=== PATIENT | male | born 1950 | race Caucasian/White ===

== ENCOUNTER → 2016-07-06 | Outpatient (CLI) | payer OTHER | LOC: RAD 12:15 | DX: J01.90 Acute sinusitis, unspecified (principal); J98.01 Acute bronchospasm; R09.89 Other specified symptoms and signs involving the circulatory and respiratory systems; Z72.0 Tobacco use; M89.9 Disorder of bone, unspecified ==

== ENCOUNTER → 2016-07-23 | Outpatient (CLI) | payer OTHER | LOC: RAD 08:03 | DX: E78.00 Pure hypercholesterolemia, unspecified (principal); Z12.5 Encounter for screening for malignant neoplasm of prostate; Z13.1 Encounter for screening for diabetes mellitus ==

== ENCOUNTER → 2016-09-29 | Outpatient (CLI) | payer OTHER | LOC: LAB 07:03 | DX: Z00.00 Encounter for general adult medical examination without abnormal findings (principal); R05 Cough; R79.89 Other specified abnormal findings of blood chemistry; E78.00 Pure hypercholesterolemia, unspecified ==

== ENCOUNTER → 2016-09-30 | Outpatient (CLI) | payer OTHER | LOC: LAB 08:37 | DX: R73.9 Hyperglycemia, unspecified (principal) ==

== ENCOUNTER → 2016-12-16 | Outpatient (CLI) | payer OTHER | LOC: LAB 16:02 | DX: J30.9 Allergic rhinitis, unspecified (principal); R10.11 Right upper quadrant pain ==

== ENCOUNTER → 2016-12-18 | Outpatient (CLI) | payer OTHER | LOC: RAD 09:11 | DX: J30.9 Allergic rhinitis, unspecified (principal); R10.11 Right upper quadrant pain ==

== ENCOUNTER → 2016-12-21 | Outpatient (CLI) | payer OTHER | LOC: RAD 09:43 | DX: K76.9 Liver disease, unspecified (principal); N28.1 Cyst of kidney, acquired; R10.11 Right upper quadrant pain; R05 Cough; Z87.891 Personal history of nicotine dependence | CPT/HCPCS: Q9967 ==

== ENCOUNTER → 2017-07-22 | Outpatient (CLI) | payer OTHER ==
[2017-07-22 14:04] LABS: HEMATOCRIT 42.4 % (42.0-52.0); HEMOGLOBIN 14.2 g/dL (13.5-18.0); MEAN CELL VOLUME 101 fl (78-100); MEAN CORPUSCULAR HEMOGLOBIN 34 pg (27-31); MEAN CORPUSCULAR HGB CONC 34 g/dL (33-37); MEAN PLATELET VOLUME 9.7 fl (7.4-10.4); PLATELET COUNT 163 K/mm3 (130-400); RED BLOOD COUNT 4.22 M/mm3 (4.20-5.60); RED CELL DISTRIBUTION WIDTH 13.9 % (11.5-14.5)
[2017-07-22 14:16] LABS: URINE APPEARANCE CLEAR; URINE BILIRUBIN NEGATIVE (NEGATIVE); URINE BLOOD NEGATIVE (NEGATIVE); URINE COLOR YELLOW; URINE GLUCOSE NEGATIVE (NEGATIVE); URINE KETONE NEGATIVE (NEGATIVE); URINE LEUKOCYTE ESTERASE NEGATIVE (NEGATIVE); URINE MUCUS PRESENT (NOT PRESENT); URINE NITRATE NEGATIVE (NEGATIVE); URINE PROTEIN(semi-quant) NEGATIVE (NEGATIVE); URINE UROBILINOGEN NORMAL (NORMAL)
[2017-07-22 14:18] LABS: ALBUMIN 4.1 g/dL (3.5-5.0); BUN/CREATININE RATIO 12.5 (6.0-26.0); CALCIUM 9.1 mg/dL (8.4-10.2); POTASSIUM 4.1 mmol/L (3.6-5.0); TOTAL BILIRUBIN 0.8 mg/dL (0.2-1.3)
[2017-07-22 14:21] LABS: LYMPHOCYTE 20 % (20-51); MONOCYTE 28 % (3-10); NEUTROPHILS 50 % (42-75)
== END ==
LOC: RAD 13:40
PROVIDERS: Nurse Practitioner Family
DX: R50.9 Fever, unspecified (principal); R05 Cough

== ENCOUNTER → 2018-01-05 | Outpatient (CLI) | payer OTHER ==
[2018-01-05 09:03] LABS: ALBUMIN 3.8 g/dL (3.5-5.0); BUN/CREATININE RATIO 12.5 (6.0-26.0); CALCIUM 9.3 mg/dL (8.4-10.2); POTASSIUM 4.5 mmol/L (3.6-5.0); TOTAL BILIRUBIN 0.4 mg/dL (0.2-1.3); TOTAL PROTEIN 7.3 g/dL (6.3-8.2)
== END ==
LOC: LAB 08:31
PROVIDERS: Family Medicine
DX: Z12.5 Encounter for screening for malignant neoplasm of prostate (principal); E78.00 Pure hypercholesterolemia, unspecified; R94.5 Abnormal results of liver function studies

== ENCOUNTER → 2018-01-27 | Outpatient (CLI) | payer OTHER ==
[~2018-01-27] MED LIST: PRILOSEC 20MG20 MG PO; PROCHLORPERAZIN10 M2
[2018-01-27 14:26] LABS: HEMATOCRIT 26.3 % (42.0-52.0); HEMOGLOBIN 8.4 g/dL (13.5-18.0); MEAN CELL VOLUME 97 fl (78-100); MEAN CORPUSCULAR HEMOGLOBIN 31 pg (27-31); MEAN CORPUSCULAR HGB CONC 32 g/dL (33-37); MEAN PLATELET VOLUME 9.6 fl (7.4-10.4); PLATELET COUNT 423 K/mm3 (130-400); RED CELL DISTRIBUTION WIDTH 15.3 % (11.5-14.5); WHITE BLOOD COUNT 11.9 K/mm3 (4.8-10.8)
[2018-01-27 14:42] LABS: BAND 1 % (0-10); LYMPHOCYTE 16 % (20-51); MONOCYTE 8 % (3-10); NEUTROPHILS 74 % (42-75); POLYCHROMASIA 1+
== END ==
LOC: LAB 14:15
PROVIDERS: Internal Medicine
DX: C24.1 Malignant neoplasm of ampulla of Vater (principal); C77.2 Secondary and unspecified malignant neoplasm of intra-abdominal lymph nodes; C78.7 Secondary malignant neoplasm of liver and intrahepatic bile duct

== ENCOUNTER 2018-04-29 13:52 | Outpatient (RCR) | payer OTHER ==
[2018-01-31 21:08] VITALS: BP 120/75
== END 2018-04-29 15:00 | disposition home or self-care (01) ==
LOC: PT 13:52
DX: M25.511 Pain in right shoulder (principal); M54.2 Cervicalgia; G47.00 Insomnia, unspecified

== ENCOUNTER → 2018-05-04 | Outpatient (CLI) | payer OTHER ==
[2018-01-31 21:08] VITALS: BP 120/75
[2018-05-04 10:29] LABS: DIRECT BILIRUBIN 0.5 mg/dL (0.0-0.4); TOTAL BILIRUBIN 0.8 mg/dL (0.2-1.3); TOTAL PROTEIN 8.6 g/dL (6.3-8.2)
== END ==
LOC: LAB 09:55
PROVIDERS: Family Medicine
DX: C80.1 Malignant (primary) neoplasm, unspecified (principal); E78.00 Pure hypercholesterolemia, unspecified; R94.5 Abnormal results of liver function studies

== ENCOUNTER → 2018-06-13 | Outpatient (CLI) | payer OTHER ==
[2018-01-31 21:08] VITALS: BP 120/75
[2018-06-13 08:17] LABS: HEMATOCRIT 38.4 % (42.0-52.0); HEMOGLOBIN 12.4 g/dL (13.5-18.0); MEAN CELL VOLUME 94 fl (78-100); MEAN CORPUSCULAR HEMOGLOBIN 30 pg (27-31); MEAN CORPUSCULAR HGB CONC 32 g/dL (33-37); MEAN PLATELET VOLUME 9.7 fl (7.4-10.4); PLATELET COUNT 103 K/mm3 (130-400); RED CELL DISTRIBUTION WIDTH 18.4 % (11.5-14.5); WHITE BLOOD COUNT 3.1 K/mm3 (4.8-10.8)
[2018-06-13 08:23] LABS: ALBUMIN 3.7 g/dL (3.5-5.0); CALCIUM 9.1 mg/dL (8.4-10.2); TOTAL PROTEIN 8.5 g/dL (6.3-8.2)
[2018-06-13 08:39] LABS: LYMPHOCYTE 36 % (20-51); MONOCYTE 9 % (3-10); NEUTROPHILS 51 % (42-75)
== END ==
LOC: LAB 08:03
PROVIDERS: Internal Medicine
DX: C24.1 Malignant neoplasm of ampulla of Vater (principal)

== ENCOUNTER → 2018-06-24 | Outpatient (CLI) | payer OTHER ==
[2018-01-31 21:08] VITALS: BP 120/75
== END ==
LOC: LAB 15:56
DX: C80.1 Malignant (primary) neoplasm, unspecified (principal); J02.9 Acute pharyngitis, unspecified; R49.0 Dysphonia

== ENCOUNTER → 2018-06-27 | Outpatient (CLI) | payer OTHER ==
[2018-01-31 21:08] VITALS: BP 120/75
[2018-06-27 08:35] LABS: ALBUMIN 3.6 g/dL (3.5-5.0); TOTAL BILIRUBIN 0.8 mg/dL (0.2-1.3); TOTAL PROTEIN 8.4 g/dL (6.3-8.2)
[2018-06-27 08:54] LABS: HEMATOCRIT 37.7 % (42.0-52.0); HEMOGLOBIN 12.2 g/dL (13.5-18.0); MEAN CELL VOLUME 95 fl (78-100); MEAN CORPUSCULAR HEMOGLOBIN 31 pg (27-31); MEAN CORPUSCULAR HGB CONC 32 g/dL (33-37); MEAN PLATELET VOLUME 9.9 fl (7.4-10.4); PLATELET COUNT 110 K/mm3 (130-400); RED BLOOD COUNT 3.97 M/mm3 (4.20-5.60); RED CELL DISTRIBUTION WIDTH 18.3 % (11.5-14.5); WHITE BLOOD COUNT 3.5 K/mm3 (4.8-10.8)
[2018-06-27 11:46] LABS: LYMPHOCYTE 27 % (20-51); MONOCYTE 10 % (3-10); NEUTROPHILS 52 % (42-75)
== END ==
LOC: LAB 08:10
PROVIDERS: Internal Medicine
DX: C24.1 Malignant neoplasm of ampulla of Vater (principal)

== ENCOUNTER → 2018-07-11 | Outpatient (CLI) | payer OTHER ==
[2018-01-31 21:08] VITALS: BP 120/75
[2018-07-11 08:35] LABS: HEMATOCRIT 38.1 % (42.0-52.0); HEMOGLOBIN 12.1 g/dL (13.5-18.0); MEAN CELL VOLUME 95 fl (78-100); MEAN CORPUSCULAR HEMOGLOBIN 30 pg (27-31); MEAN CORPUSCULAR HGB CONC 32 g/dL (33-37); MEAN PLATELET VOLUME 9.5 fl (7.4-10.4); PLATELET COUNT 117 K/mm3 (130-400); RED BLOOD COUNT 4.02 M/mm3 (4.20-5.60); RED CELL DISTRIBUTION WIDTH 18.4 % (11.5-14.5); WHITE BLOOD COUNT 3.9 K/mm3 (4.8-10.8)
[2018-07-11 08:47] LABS: ALBUMIN 3.6 g/dL (3.5-5.0); CALCIUM 8.7 mg/dL (8.4-10.2); POTASSIUM 4.3 mmol/L (3.6-5.0); TOTAL BILIRUBIN 0.9 mg/dL (0.2-1.3); TOTAL PROTEIN 8.7 g/dL (6.3-8.2)
[2018-07-11 11:24] LABS: LYMPHOCYTE 23 % (20-51); NEUTROPHILS 50 % (42-75)
[2018-07-11 11:25] LABS: MICROCYTOSIS 1+; MONOCYTE 14 % (3-10)
== END ==
LOC: LAB 08:21
PROVIDERS: Internal Medicine
DX: C17.0 Malignant neoplasm of duodenum (principal)

== ENCOUNTER → 2018-07-25 | Outpatient (CLI) | payer OTHER ==
[2018-01-31 21:08] VITALS: BP 120/75
[2018-07-25 08:39] LABS: BASO # 0.1 (0.02-0.10); EOS # 0.3 (0.04-0.40); HEMATOCRIT 37.3 % (42.0-52.0); HEMOGLOBIN 11.9 g/dL (13.5-18.0); LYMPH# 0.8 (1.50-4.00); MEAN CELL VOLUME 96 fl (78-100); MEAN CORPUSCULAR HEMOGLOBIN 31 pg (27-31); MEAN CORPUSCULAR HGB CONC 32 g/dL (33-37); MONO # 0.4 (0.20-0.80); NEU # 2.3 (1.40-6.50); PLATELET COUNT 115 K/mm3 (130-400); RED BLOOD COUNT 3.89 M/mm3 (4.20-5.60); RED CELL DISTRIBUTION WIDTH 18.3 % (11.5-14.5); WHITE BLOOD COUNT 3.8 K/mm3 (4.8-10.8)
[2018-07-25 09:00] LABS: ALBUMIN 3.8 g/dL (3.5-5.0); CALCIUM 8.7 mg/dL (8.4-10.2); POTASSIUM 4.2 mmol/L (3.6-5.0)
[2018-07-25 10:28] LABS: EOS % 6.9 % (0.0-4.0)
== END ==
LOC: LAB 08:22
PROVIDERS: Internal Medicine
DX: C24.1 Malignant neoplasm of ampulla of Vater (principal); C17.0 Malignant neoplasm of duodenum

== ENCOUNTER → 2018-08-08 | Outpatient (CLI) | payer OTHER ==
[2018-01-31 21:08] VITALS: BP 120/75
[2018-08-08 13:43] LABS: ALBUMIN 3.6 g/dL (3.5-5.0); CALCIUM 8.8 mg/dL (8.4-10.2); POTASSIUM 4.4 mmol/L (3.6-5.0); TOTAL PROTEIN 8.4 g/dL (6.3-8.2)
[2018-08-08 15:14] LABS: HEMATOCRIT 33.9 % (42.0-52.0); HEMOGLOBIN 10.8 g/dL (13.5-18.0); MEAN CELL VOLUME 97 fl (78-100); MEAN CORPUSCULAR HEMOGLOBIN 31 pg (27-31); MEAN CORPUSCULAR HGB CONC 32 g/dL (33-37); MEAN PLATELET VOLUME 10.1 fl (7.4-10.4); PLATELET COUNT 116 K/mm3 (130-400); RED BLOOD COUNT 3.49 M/mm3 (4.20-5.60); RED CELL DISTRIBUTION WIDTH 18.5 % (11.5-14.5); WHITE BLOOD COUNT 3.3 K/mm3 (4.8-10.8)
[2018-08-08 16:10] LABS: LYMPHOCYTE 19 % (20-51); MONOCYTE 9 % (3-10); NEUTROPHILS 67 % (42-75)
== END ==
LOC: LAB 11:16
PROVIDERS: Internal Medicine
DX: C24.1 Malignant neoplasm of ampulla of Vater (principal)

== ENCOUNTER → 2018-08-22 | Outpatient (CLI) | payer OTHER ==
[2018-01-31 21:08] VITALS: BP 120/75
[2018-08-22 11:36] LABS: HEMATOCRIT 33.3 % (42.0-52.0); HEMOGLOBIN 10.6 g/dL (13.5-18.0); MEAN CELL VOLUME 97 fl (78-100); MEAN CORPUSCULAR HEMOGLOBIN 31 pg (27-31); MEAN CORPUSCULAR HGB CONC 32 g/dL (33-37); MEAN PLATELET VOLUME 9.5 fl (7.4-10.4); PLATELET COUNT 124 K/mm3 (130-400); RED BLOOD COUNT 3.43 M/mm3 (4.20-5.60); RED CELL DISTRIBUTION WIDTH 18.5 % (11.5-14.5); WHITE BLOOD COUNT 4.2 K/mm3 (4.8-10.8)
[2018-08-22 11:49] LABS: ALBUMIN 3.5 g/dL (3.5-5.0); POTASSIUM 4.5 mmol/L (3.6-5.0); TOTAL PROTEIN 8.5 g/dL (6.3-8.2)
[2018-08-22 12:32] LABS: LYMPHOCYTE 16 % (20-51); MONOCYTE 8 % (3-10); NEUTROPHILS 72 % (42-75)
== END ==
LOC: LAB 11:18
PROVIDERS: Internal Medicine
DX: C24.1 Malignant neoplasm of ampulla of Vater (principal); C17.0 Malignant neoplasm of duodenum; C77.2 Secondary and unspecified malignant neoplasm of intra-abdominal lymph nodes; C78.7 Secondary malignant neoplasm of liver and intrahepatic bile duct

== ENCOUNTER → 2018-09-05 | Outpatient (CLI) | payer OTHER ==
[2018-01-31 21:08] VITALS: BP 120/75
[2018-09-05 10:12] LABS: BASO # 0.1 (0.02-0.10); EOS # 0.2 (0.04-0.40); EOS % 4.7 % (0.0-4.0); HEMATOCRIT 33.2 % (42.0-52.0); HEMOGLOBIN 10.4 g/dL (13.5-18.0); MEAN CELL VOLUME 98 fl (78-100); MEAN CORPUSCULAR HEMOGLOBIN 31 pg (27-31); MEAN CORPUSCULAR HGB CONC 31 g/dL (33-37); MEAN PLATELET VOLUME 9.8 fl (7.4-10.4); MONO # 0.4 (0.20-0.80); NEU # 2.2 (1.40-6.50); PLATELET COUNT 115 K/mm3 (130-400); RED BLOOD COUNT 3.38 M/mm3 (4.20-5.60); RED CELL DISTRIBUTION WIDTH 19.3 % (11.5-14.5); WHITE BLOOD COUNT 3.2 K/mm3 (4.8-10.8)
[2018-09-05 10:13] LABS: ALBUMIN 3.4 g/dL (3.5-5.0); CALCIUM 8.5 mg/dL (8.4-10.2); POTASSIUM 3.9 mmol/L (3.6-5.0); TOTAL BILIRUBIN 1.1 mg/dL (0.2-1.3); TOTAL PROTEIN 8.3 g/dL (6.3-8.2)
[2018-09-05 10:16] LABS: LYMPH# 0.4 (1.50-4.00)
== END ==
LOC: LAB 09:34
PROVIDERS: Internal Medicine
DX: C24.1 Malignant neoplasm of ampulla of Vater (principal); C17.0 Malignant neoplasm of duodenum; C77.2 Secondary and unspecified malignant neoplasm of intra-abdominal lymph nodes; C78.7 Secondary malignant neoplasm of liver and intrahepatic bile duct

== ENCOUNTER → 2018-09-19 | Outpatient (CLI) | payer OTHER ==
[2018-01-31 21:08] VITALS: BP 120/75
[2018-09-19 10:46] LABS: ALBUMIN 3.4 g/dL (3.5-5.0); CALCIUM 8.3 mg/dL (8.4-10.2); POTASSIUM 4.4 mmol/L (3.6-5.0); TOTAL BILIRUBIN 1.2 mg/dL (0.2-1.3); TOTAL PROTEIN 8.2 g/dL (6.3-8.2)
[2018-09-19 10:57] LABS: HEMATOCRIT 29.6 % (42.0-52.0); HEMOGLOBIN 9.2 g/dL (13.5-18.0); MEAN CELL VOLUME 98 fl (78-100); MEAN CORPUSCULAR HEMOGLOBIN 31 pg (27-31); MEAN CORPUSCULAR HGB CONC 31 g/dL (33-37); MEAN PLATELET VOLUME 10.1 fl (7.4-10.4); PLATELET COUNT 125 K/mm3 (130-400); RED BLOOD COUNT 3.02 M/mm3 (4.20-5.60); RED CELL DISTRIBUTION WIDTH 19.9 % (11.5-14.5); WHITE BLOOD COUNT 3.1 K/mm3 (4.8-10.8)
[2018-09-19 11:38] LABS: LYMPHOCYTE 11 % (20-51); MONOCYTE 21 % (3-10); NEUTROPHILS 63 % (42-75)
== END ==
LOC: LAB 10:05
PROVIDERS: Internal Medicine
DX: C24.1 Malignant neoplasm of ampulla of Vater (principal)

== ENCOUNTER 2018-10-01 09:09 | Emergency (ER) | payer OTHER ==
[~2018-10-01] VITALS: Ht 188 cm; Wt 84.0 kg
[2018-10-01] MEDS ORDERED: HYDROXYZINE HYD50 M1 PO (09:18)
[2018-10-01 10:05] LABS: HEMATOCRIT 24.3 % (42.0-52.0); MEAN CELL VOLUME 96 fl (78-100); MEAN CORPUSCULAR HEMOGLOBIN 30 pg (27-31); MEAN CORPUSCULAR HGB CONC 32 g/dL (33-37); MEAN PLATELET VOLUME 10.5 fl (7.4-10.4); PLATELET COUNT 171 K/mm3 (130-400); RED BLOOD COUNT 2.54 M/mm3 (4.20-5.60); RED CELL DISTRIBUTION WIDTH 19.8 % (11.5-14.5); WHITE BLOOD COUNT 7.3 K/mm3 (4.8-10.8)
[2018-10-01 10:07] LABS: ALBUMIN 2.4 g/dL (3.4-4.8); CALCIUM 8.1 mg/dL (8.8-10.0); POTASSIUM 4.1 mmol/L (3.5-5.1); TOTAL BILIRUBIN 1.6 mg/dL (0.2-1.2); TOTAL PROTEIN 6.9 g/dL (6.2-8.1)
[2018-10-01 10:10] LABS: PARTIAL THROMBOPLASTIN TIME 23.6 SECONDS (21.0-32.0); PROTHROMBIN TIME 10.7 SECONDS (9.0-12.0)
[2018-10-01 10:23] LABS: HEMOGLOBIN 7.7 g/dL (13.5-18.0)
[2018-10-01 10:24] LABS: LYMPHOCYTE 12 % (20-51); NEUTROPHILS 72 % (42-75)
[2018-10-01 10:25] LABS: MONOCYTE 12 % (3-10)
[2018-10-01 10:28] LABS: HYPOCHROMIA 1+
[2018-10-01 12:04] VITALS: BP 112/67
== END 2018-10-01 12:17 | disposition short-term general hospital (02) ==
LOC: ED 09:09
PROVIDERS: Family Medicine
DX: C24.1 Malignant neoplasm of ampulla of Vater (principal); C78.7 Secondary malignant neoplasm of liver and intrahepatic bile duct; K92.2 Gastrointestinal hemorrhage, unspecified; Z87.891 Personal history of nicotine dependence
CPT/HCPCS: C9113; J7050; J7120

== ENCOUNTER → 2018-10-06 | Outpatient (CLI) | payer OTHER ==
[2018-10-01 12:04] VITALS: BP 112/67
[~2018-10-06] MED LIST changes: +HYDROXYZINE HYD50 M1 PO
== END ==
LOC: RAD 14:21
DX: C24.1 Malignant neoplasm of ampulla of Vater (principal); R18.8 Other ascites

== ENCOUNTER → 2018-10-11 | Outpatient (CLI) | payer OTHER ==
[2018-10-01 12:04] VITALS: BP 112/67
[2018-10-11 09:52] LABS: HEMATOCRIT 32.4 % (42.0-52.0); HEMOGLOBIN 9.8 g/dL (13.5-18.0); MEAN CELL VOLUME 96 fl (78-100); MEAN CORPUSCULAR HEMOGLOBIN 29 pg (27-31); MEAN CORPUSCULAR HGB CONC 30 g/dL (33-37); MEAN PLATELET VOLUME 9.5 fl (7.4-10.4); PLATELET COUNT 187 K/mm3 (130-400); RED BLOOD COUNT 3.37 M/mm3 (4.20-5.60); RED CELL DISTRIBUTION WIDTH 19.3 % (11.5-14.5); WHITE BLOOD COUNT 4.2 K/mm3 (4.8-10.8)
[2018-10-11 10:09] LABS: LYMPHOCYTE 7 % (20-51); MONOCYTE 12 % (3-10); NEUTROPHILS 76 % (42-75)
[2018-10-11 10:10] LABS: MICROCYTOSIS 1+; OVALOCYTES 1+
[2018-10-11 10:27] LABS: ALBUMIN 2.6 g/dL (3.4-4.8); CALCIUM 8.5 mg/dL (8.8-10.0); POTASSIUM 3.9 mmol/L (3.5-5.1); TOTAL BILIRUBIN 1.2 mg/dL (0.2-1.2); TOTAL PROTEIN 7.5 g/dL (6.2-8.1)
== END ==
LOC: LAB 09:38
PROVIDERS: Internal Medicine
DX: C24.1 Malignant neoplasm of ampulla of Vater (principal)

== ENCOUNTER → 2018-10-18 | Outpatient (CLI) | payer OTHER ==
[2018-10-01 12:04] VITALS: BP 112/67
[2018-10-18 10:51] LABS: HEMOGLOBIN 9.6 g/dL (13.5-18.0); MEAN CELL VOLUME 95 fl (78-100); MEAN CORPUSCULAR HEMOGLOBIN 28 pg (27-31); MEAN CORPUSCULAR HGB CONC 30 g/dL (33-37); MEAN PLATELET VOLUME 9.8 fl (7.4-10.4); PLATELET COUNT 200 K/mm3 (130-400); RED BLOOD COUNT 3.38 M/mm3 (4.20-5.60); RED CELL DISTRIBUTION WIDTH 18.2 % (11.5-14.5); WHITE BLOOD COUNT 5.3 K/mm3 (4.8-10.8)
[2018-10-18 11:06] LABS: ALBUMIN 2.4 g/dL (3.4-4.8); CALCIUM 8.8 mg/dL (8.8-10.0); POTASSIUM 4.3 mmol/L (3.5-5.1); TOTAL BILIRUBIN 1.2 mg/dL (0.2-1.2); TOTAL PROTEIN 7.3 g/dL (6.2-8.1)
[2018-10-18 12:00] LABS: LYMPHOCYTE 15 % (20-51); MONOCYTE 7 % (3-10); NEUTROPHILS 75 % (42-75)
== END ==
LOC: LAB 10:30
PROVIDERS: Internal Medicine
DX: C24.1 Malignant neoplasm of ampulla of Vater (principal)

== ENCOUNTER → 2018-10-24 | Outpatient (CLI) | payer OTHER ==
[2018-10-01 12:04] VITALS: BP 112/67
[2018-10-24 11:17] LABS: HEMATOCRIT 29.9 % (42.0-52.0); MEAN CELL VOLUME 94 fl (78-100); MEAN CORPUSCULAR HEMOGLOBIN 28 pg (27-31); MEAN CORPUSCULAR HGB CONC 30 g/dL (33-37); MEAN PLATELET VOLUME 9.8 fl (7.4-10.4); PLATELET COUNT 239 K/mm3 (130-400); RED BLOOD COUNT 3.17 M/mm3 (4.20-5.60); RED CELL DISTRIBUTION WIDTH 18.2 % (11.5-14.5); WHITE BLOOD COUNT 7.1 K/mm3 (4.8-10.8)
[2018-10-24 11:28] LABS: ALBUMIN 2.6 g/dL (3.4-4.8); CALCIUM 9.1 mg/dL (8.3-10.5); POTASSIUM 4.1 mmol/L (3.5-5.1); TOTAL BILIRUBIN 1.3 mg/dL (0.2-1.2); TOTAL PROTEIN 8.1 g/dL (6.2-8.1)
[2018-10-24 11:34] LABS: LYMPHOCYTE 5 % (20-51); MICROCYTOSIS 1+; MONOCYTE 7 % (3-10); MYELOCYTE 1 % (0-0); NEUTROPHILS 86 % (42-75)
[2018-10-24 12:00] LABS: URINE APPEARANCE CLEAR; URINE BILIRUBIN NEGATIVE (NEGATIVE); URINE BLOOD 250 ery/uL (NEGATIVE); URINE COLOR YELLOW; URINE GLUCOSE NEGATIVE (NEGATIVE); URINE KETONE NEGATIVE (NEGATIVE); URINE LEUKOCYTE ESTERASE NEGATIVE (NEGATIVE); URINE MUCUS PRESENT (NOT PRESENT); URINE NITRATE NEGATIVE (NEGATIVE); URINE PROTEIN(semi-quant) 1+ mg/dL (NEGATIVE); URINE UROBILINOGEN NORMAL (NORMAL); URINE WBC 0-1 /hpf (0-3)
[2018-10-24 12:13] LABS: ERYTHROCYTE SEDIMENTATION RATE 140 mm/hr (0-20)
== END ==
LOC: RAD 10:59 → LAB 10:59
PROVIDERS: Family Medicine
DX: I85.01 Esophageal varices with bleeding (principal); G47.00 Insomnia, unspecified; D62 Acute posthemorrhagic anemia; R30.0 Dysuria

== ENCOUNTER → 2018-11-18 | Outpatient (CLI) | payer OTHER ==
[2018-11-18 13:25] LABS: BASO # 0.1 (0.02-0.10); EOS # 0.2 (0.04-0.40); HEMATOCRIT 32.1 % (42.0-52.0); HEMOGLOBIN 9.4 g/dL (13.5-18.0); MEAN CELL VOLUME 94 fl (78-100); MEAN CORPUSCULAR HEMOGLOBIN 27 pg (27-31); MEAN PLATELET VOLUME 10.1 fl (7.4-10.4); MONO # 0.5 (0.20-0.80); NEU # 3.1 (1.40-6.50); PLATELET COUNT 164 K/mm3 (130-400); RED BLOOD COUNT 3.43 M/mm3 (4.20-5.60); RED CELL DISTRIBUTION WIDTH 17.8 % (11.5-14.5); WHITE BLOOD COUNT 4.4 K/mm3 (4.8-10.8)
[2018-11-18 13:38] LABS: ALBUMIN 2.6 g/dL (3.4-4.8); POTASSIUM 3.9 mmol/L (3.5-5.1)
[2018-11-18 13:39] LABS: CALCIUM 8.4 mg/dL (8.3-10.5)
[2018-11-18 13:40] LABS: TOTAL PROTEIN 7.7 g/dL (6.2-8.1)
[2018-11-18 13:45] LABS: EOS % 5.4 % (0.0-4.0); LYMPH# 0.6 (1.50-4.00); MEAN CORPUSCULAR HGB CONC 29 g/dL (33-37)
== END ==
LOC: LAB 13:14
PROVIDERS: Family Medicine
DX: C24.1 Malignant neoplasm of ampulla of Vater (principal)

== ENCOUNTER → 2018-11-30 | Outpatient (CLI) | payer OTHER, MEDICARE | LOC: RAD 11:34 | DX: K64.4 Residual hemorrhoidal skin tags (principal); R14.0 Abdominal distension (gaseous); R18.8 Other ascites; R16.0 Hepatomegaly, not elsewhere classified ==

== ENCOUNTER → 2018-12-14 | Outpatient (CLI) | payer OTHER, MEDICARE ==
[2018-12-14 11:24] LABS: HEMATOCRIT 28.2 % (42.0-52.0); HEMOGLOBIN 8.5 g/dL (13.5-18.0); MEAN CELL VOLUME 90 fl (78-100); MEAN CORPUSCULAR HEMOGLOBIN 27 pg (27-31); MEAN CORPUSCULAR HGB CONC 30 g/dL (33-37); MEAN PLATELET VOLUME 10.8 fl (7.4-10.4); PLATELET COUNT 105 K/mm3 (130-400); RED BLOOD COUNT 3.14 M/mm3 (4.20-5.60); RED CELL DISTRIBUTION WIDTH 19.9 % (11.5-14.5)
[2018-12-14 11:30] LABS: ALBUMIN 2.9 g/dL (3.4-4.8)
[2018-12-14 11:31] LABS: POTASSIUM 4.1 mmol/L (3.5-5.1)
[2018-12-14 11:32] LABS: CALCIUM 8.3 mg/dL (8.3-10.5)
[2018-12-14 11:33] LABS: LYMPHOCYTE 20 % (20-51); MICROCYTOSIS 1+; MONOCYTE 24 % (3-10); NEUTROPHILS 51 % (42-75); POLYCHROMASIA 1+; TOTAL PROTEIN 6.9 g/dL (6.2-8.1); WHITE BLOOD COUNT 1.3 K/mm3 (4.8-10.8)
[2018-12-14 11:34] LABS: OVALOCYTES 1+; TEAR DROP CELLS 1+
[2018-12-14 11:35] LABS: TOTAL BILIRUBIN 1.5 mg/dL (0.2-1.2)
== END ==
LOC: LAB 11:06
PROVIDERS: Internal Medicine
DX: C24.1 Malignant neoplasm of ampulla of Vater (principal)

== ENCOUNTER → 2018-12-28 | Outpatient (CLI) | payer MEDICARE, OTHER ==
[2018-12-28 14:38] LABS: HEMATOCRIT 26.1 % (42.0-52.0); MEAN CELL VOLUME 89 fl (78-100); MEAN CORPUSCULAR HEMOGLOBIN 27 pg (27-31); MEAN CORPUSCULAR HGB CONC 31 g/dL (33-37); PLATELET COUNT 86 K/mm3 (130-400); RED BLOOD COUNT 2.94 M/mm3 (4.20-5.60); RED CELL DISTRIBUTION WIDTH 20.6 % (11.5-14.5)
[2018-12-28 14:46] LABS: POTASSIUM 4.6 mmol/L (3.5-5.1)
[2018-12-28 14:47] LABS: CALCIUM 8.5 mg/dL (8.3-10.5)
[2018-12-28 14:49] LABS: TOTAL PROTEIN 7.1 g/dL (6.2-8.1)
[2018-12-28 14:50] LABS: TOTAL BILIRUBIN 1.3 mg/dL (0.2-1.2)
[2018-12-28 15:21] LABS: WHITE BLOOD COUNT 0.9 K/mm3 (4.8-10.8)
[2018-12-28 15:23] LABS: LYMPHOCYTE 26 % (20-51); MONOCYTE 32 % (3-10); NEUTROPHILS 40 % (42-75)
[2018-12-28 15:26] LABS: HYPOCHROMIA 2+
== END ==
LOC: LAB 14:23
PROVIDERS: Internal Medicine
DX: C24.1 Malignant neoplasm of ampulla of Vater (principal)

== ENCOUNTER → 2019-01-09 | Outpatient (CLI) | payer MEDICARE, OTHER ==
[2019-01-09 11:56] LABS: HEMATOCRIT 25.9 % (42.0-52.0); MEAN CELL VOLUME 93 fl (78-100); MEAN CORPUSCULAR HEMOGLOBIN 28 pg (27-31); MEAN CORPUSCULAR HGB CONC 30 g/dL (33-37); MEAN PLATELET VOLUME 10.4 fl (7.4-10.4); PLATELET COUNT 153 K/mm3 (130-400); RED BLOOD COUNT 2.78 M/mm3 (4.20-5.60); RED CELL DISTRIBUTION WIDTH 21.6 % (11.5-14.5); WHITE BLOOD COUNT 3.6 K/mm3 (4.8-10.8)
[2019-01-09 12:10] LABS: ALBUMIN 3.2 g/dL (3.4-4.8); POTASSIUM 4.5 mmol/L (3.5-5.1)
[2019-01-09 12:11] LABS: CALCIUM 8.7 mg/dL (8.3-10.5)
[2019-01-09 12:13] LABS: TOTAL PROTEIN 7.4 g/dL (6.2-8.1)
[2019-01-09 12:15] LABS: TOTAL BILIRUBIN 1.4 mg/dL (0.2-1.2)
[2019-01-09 12:40] LABS: HEMOGLOBIN 7.8 g/dL (13.5-18.0)
[2019-01-09 12:44] LABS: BAND 1 % (0-10); LYMPHOCYTE 3 % (20-51); MONOCYTE 2 % (3-10); NEUTROPHILS 94 % (42-75)
[2019-01-09 12:45] LABS: MICROCYTOSIS 1+; OVALOCYTES 1+; TEAR DROP CELLS 1+
== END ==
LOC: LAB 11:40
PROVIDERS: Internal Medicine
DX: C24.1 Malignant neoplasm of ampulla of Vater (principal)

== ENCOUNTER → 2019-01-12 | Outpatient (CLI) | payer MEDICARE, OTHER | LOC: LAB 12:46 | DX: C24.1 Malignant neoplasm of ampulla of Vater (principal); D64.9 Anemia, unspecified ==

== ENCOUNTER → 2019-01-19 | Outpatient (CLI) | payer MEDICARE, OTHER ==
[2019-01-19 12:02] LABS: HEMATOCRIT 25.1 % (42.0-52.0); MEAN CELL VOLUME 92 fl (78-100); MEAN CORPUSCULAR HEMOGLOBIN 27 pg (27-31); MEAN CORPUSCULAR HGB CONC 30 g/dL (33-37); MEAN PLATELET VOLUME 10.5 fl (7.4-10.4); PLATELET COUNT 88 K/mm3 (130-400); RED BLOOD COUNT 2.73 M/mm3 (4.20-5.60); RED CELL DISTRIBUTION WIDTH 21.1 % (11.5-14.5); WHITE BLOOD COUNT 2.6 K/mm3 (4.8-10.8)
[2019-01-19 12:27] LABS: BAND 2 % (0-10); HYPOCHROMIA 1+; LYMPHOCYTE 13 % (20-51); MONOCYTE 20 % (3-10); NEUTROPHILS 64 % (42-75)
[2019-01-19 13:22] LABS: ALBUMIN 3.1 g/dL (3.4-4.8)
[2019-01-19 13:23] LABS: POTASSIUM 3.7 mmol/L (3.5-5.1)
[2019-01-19 13:24] LABS: CALCIUM 8.2 mg/dL (8.3-10.5)
[2019-01-19 13:25] LABS: TOTAL PROTEIN 6.2 g/dL (6.2-8.1)
[2019-01-19 13:27] LABS: TOTAL BILIRUBIN 1.1 mg/dL (0.2-1.2)
[2019-01-19 13:47] LABS: HEMOGLOBIN 7.4 g/dL (13.5-18.0)
== END ==
LOC: LAB 11:18
PROVIDERS: Family Medicine
DX: C24.1 Malignant neoplasm of ampulla of Vater (principal)

== ENCOUNTER → 2019-01-27 | Outpatient (CLI) | payer MEDICARE, OTHER ==
[2019-01-27 14:01] LABS: ALBUMIN 3.2 g/dL (3.4-4.8); MEAN CELL VOLUME 92 fl (78-100); MEAN CORPUSCULAR HEMOGLOBIN 28 pg (27-31); MEAN CORPUSCULAR HGB CONC 30 g/dL (33-37); MEAN PLATELET VOLUME 11.7 fl (7.4-10.4); PLATELET COUNT 119 K/mm3 (130-400); POTASSIUM 4.1 mmol/L (3.5-5.1); RED BLOOD COUNT 2.82 M/mm3 (4.20-5.60); RED CELL DISTRIBUTION WIDTH 20.5 % (11.5-14.5)
[2019-01-27 14:04] LABS: TOTAL PROTEIN 6.2 g/dL (6.2-8.1)
[2019-01-27 14:05] LABS: TOTAL BILIRUBIN 0.9 mg/dL (0.2-1.2)
[2019-01-27 15:49] LABS: HEMOGLOBIN 7.8 g/dL (13.5-18.0)
[2019-01-27 15:50] LABS: LYMPHOCYTE 5 % (20-51); MONOCYTE 2 % (3-10); NEUTROPHILS 93 % (42-75)
== END ==
LOC: LAB 13:24
PROVIDERS: Internal Medicine
DX: C24.1 Malignant neoplasm of ampulla of Vater (principal)

== ENCOUNTER → 2019-02-01 | Outpatient (CLI) | payer MEDICARE, OTHER ==
[2019-02-01 15:29] LABS: HEMATOCRIT 24.4 % (42.0-52.0); MEAN CELL VOLUME 89 fl (78-100); MEAN CORPUSCULAR HEMOGLOBIN 28 pg (27-31); MEAN CORPUSCULAR HGB CONC 31 g/dL (33-37); MEAN PLATELET VOLUME 11.6 fl (7.4-10.4); PLATELET COUNT 74 K/mm3 (130-400); RED BLOOD COUNT 2.74 M/mm3 (4.20-5.60); RED CELL DISTRIBUTION WIDTH 20.2 % (11.5-14.5)
[2019-02-01 15:58] LABS: HEMOGLOBIN 7.6 g/dL (13.5-18.0); WHITE BLOOD COUNT 0.9 K/mm3 (4.8-10.8)
[2019-02-01 15:59] LABS: LYMPHOCYTE 18 % (20-51); MONOCYTE 18 % (3-10); NEUTROPHILS 61 % (42-75)
== END ==
LOC: LAB 15:16
PROVIDERS: Internal Medicine
DX: C24.1 Malignant neoplasm of ampulla of Vater (principal)

== ENCOUNTER → 2019-02-16 | Outpatient (CLI) | payer MEDICARE, OTHER ==
[~2019-02-16] MED LIST changes: +ALDACTONE25 M1 PO; +ATROVENT I0.2 MG/1 M IH; +CHOLESTYRAMINE P4 GM PO; +DECADRON4 M1 PO; +NORCO 325 MG-51 TA1 PO; +[UNRECOGNIZED DRUG - OTHER] RC
[2019-02-16 08:21] LABS: ALBUMIN 3.1 g/dL (3.4-4.8); POTASSIUM 4.5 mmol/L (3.5-5.1)
[2019-02-16 08:23] LABS: CALCIUM 8.3 mg/dL (8.3-10.5)
[2019-02-16 08:24] LABS: TOTAL PROTEIN 6.4 g/dL (6.2-8.1)
[2019-02-16 08:26] LABS: TOTAL BILIRUBIN 1.6 mg/dL (0.2-1.2)
[2019-02-16 08:30] LABS: HEMATOCRIT 26.8 % (42.0-52.0); HEMOGLOBIN 8.3 g/dL (13.5-18.0); MEAN CELL VOLUME 87 fl (78-100); MEAN CORPUSCULAR HEMOGLOBIN 27 pg (27-31); MEAN CORPUSCULAR HGB CONC 31 g/dL (33-37); MEAN PLATELET VOLUME 9.7 fl (7.4-10.4); PLATELET COUNT 88 K/mm3 (130-400); RED BLOOD COUNT 3.09 M/mm3 (4.20-5.60); RED CELL DISTRIBUTION WIDTH 20.1 % (11.5-14.5); WHITE BLOOD COUNT 2.8 K/mm3 (4.8-10.8)
[2019-02-16 08:31] LABS: LYMPHOCYTE 5 % (20-51); MAGNESIUM 1.93 mg/dL (1.60-2.60); MICROCYTOSIS 1+; MONOCYTE 21 % (3-10); NEUTROPHILS 72 % (42-75); OVALOCYTES 1+; POLYCHROMASIA 1+; TEAR DROP CELLS 1+
== END ==
LOC: LAB 08:01
PROVIDERS: Internal Medicine
DX: C24.1 Malignant neoplasm of ampulla of Vater (principal)

== ENCOUNTER → 2019-02-17 | Outpatient (CLI) | payer MEDICARE, OTHER ==
[~2019-02-17] VITALS: Ht 188 cm; Wt 80.9 kg
[2019-02-17 11:40] VITALS: BP 112/64
[2019-02-17 14:00] VITALS: BP 111/67
[2019-02-17 14:09] VITALS: BP 111/67
[2019-02-17 14:28] LABS: POTASSIUM 4.3 mmol/L (3.5-5.1)
[2019-02-17 14:29] LABS: CALCIUM 7.8 mg/dL (8.3-10.5)
== END ==
LOC: AMSURD 11:35
PROVIDERS: Family Medicine
DX: E87.1 Hypo-osmolality and hyponatremia (principal); R00.0 Tachycardia, unspecified; R53.83 Other fatigue; D70.9 Neutropenia, unspecified; G47.00 Insomnia, unspecified
CPT/HCPCS: J7030

== ENCOUNTER → 2019-02-24 | Outpatient (CLI) | payer MEDICARE, OTHER ==
[2019-02-17 14:09] VITALS: BP 111/67
[2019-02-24 13:41] LABS: HEMATOCRIT 27.9 % (42.0-52.0); HEMOGLOBIN 8.4 g/dL (13.5-18.0); MEAN CELL VOLUME 91 fl (78-100); MEAN CORPUSCULAR HEMOGLOBIN 28 pg (27-31); MEAN CORPUSCULAR HGB CONC 30 g/dL (33-37); MEAN PLATELET VOLUME 9.7 fl (7.4-10.4); PLATELET COUNT 238 K/mm3 (130-400); RED BLOOD COUNT 3.06 M/mm3 (4.20-5.60); WHITE BLOOD COUNT 3.4 K/mm3 (4.8-10.8)
[2019-02-24 13:53] LABS: ALBUMIN 3.4 g/dL (3.4-4.8); POTASSIUM 4.4 mmol/L (3.5-5.1)
[2019-02-24 13:54] LABS: CALCIUM 8.6 mg/dL (8.3-10.5)
[2019-02-24 13:55] LABS: TOTAL PROTEIN 6.1 g/dL (6.2-8.1)
[2019-02-24 13:57] LABS: TOTAL BILIRUBIN 1.6 mg/dL (0.2-1.2)
[2019-02-24 14:02] LABS: MAGNESIUM 2.18 mg/dL (1.60-2.60)
[2019-02-24 14:03] LABS: LYMPHOCYTE 2 % (20-51); NEUTROPHILS 98 % (42-75)
== END ==
LOC: LAB 13:22
PROVIDERS: Internal Medicine
DX: C24.1 Malignant neoplasm of ampulla of Vater (principal)

== ENCOUNTER → 2019-03-02 | Outpatient (CLI) | payer MEDICARE, OTHER ==
[2019-02-17 14:09] VITALS: BP 111/67
[2019-03-02 14:11] LABS: HEMATOCRIT 28.7 % (42.0-52.0); HEMOGLOBIN 8.8 g/dL (13.5-18.0); MEAN CELL VOLUME 89 fl (78-100); MEAN CORPUSCULAR HEMOGLOBIN 27 pg (27-31); MEAN CORPUSCULAR HGB CONC 31 g/dL (33-37); MEAN PLATELET VOLUME 9.3 fl (7.4-10.4); PLATELET COUNT 128 K/mm3 (130-400); RED BLOOD COUNT 3.24 M/mm3 (4.20-5.60); RED CELL DISTRIBUTION WIDTH 21.9 % (11.5-14.5); WHITE BLOOD COUNT 3.4 K/mm3 (4.8-10.8)
[2019-03-02 14:20] LABS: ALBUMIN 3.2 g/dL (3.4-4.8)
[2019-03-02 14:21] LABS: POTASSIUM 4.6 mmol/L (3.5-5.1)
[2019-03-02 14:22] LABS: CALCIUM 8.4 mg/dL (8.3-10.5)
[2019-03-02 14:23] LABS: TOTAL PROTEIN 6.5 g/dL (6.2-8.1)
[2019-03-02 14:25] LABS: TOTAL BILIRUBIN 1.9 mg/dL (0.2-1.2)
[2019-03-02 14:27] LABS: LYMPHOCYTE 11 % (20-51); MONOCYTE 18 % (3-10); NEUTROPHILS 70 % (42-75)
[2019-03-02 14:29] LABS: MAGNESIUM 1.93 mg/dL (1.60-2.60); POLYCHROMASIA 1+
== END ==
LOC: LAB 14:00
PROVIDERS: Internal Medicine
DX: C24.1 Malignant neoplasm of ampulla of Vater (principal)

== ENCOUNTER → 2019-03-16 | Outpatient (CLI) | payer MEDICARE, OTHER ==
[2019-02-17 14:09] VITALS: BP 111/67
[2019-03-16 15:24] LABS: HEMATOCRIT 29.6 % (42.0-52.0); MEAN CELL VOLUME 92 fl (78-100); MEAN CORPUSCULAR HEMOGLOBIN 28 pg (27-31); MEAN CORPUSCULAR HGB CONC 30 g/dL (33-37); MEAN PLATELET VOLUME 10.3 fl (7.4-10.4); PLATELET COUNT 106 K/mm3 (130-400); RED BLOOD COUNT 3.21 M/mm3 (4.20-5.60); RED CELL DISTRIBUTION WIDTH 22.6 % (11.5-14.5); WHITE BLOOD COUNT 2.9 K/mm3 (4.8-10.8)
[2019-03-16 15:36] LABS: ALBUMIN 3.2 g/dL (3.4-4.8); POTASSIUM 4.8 mmol/L (3.5-5.1)
[2019-03-16 15:38] LABS: CALCIUM 8.6 mg/dL (8.3-10.5)
[2019-03-16 15:39] LABS: TOTAL PROTEIN 6.2 g/dL (6.2-8.1)
[2019-03-16 15:41] LABS: TOTAL BILIRUBIN 1.5 mg/dL (0.2-1.2)
[2019-03-16 15:45] LABS: MAGNESIUM 1.98 mg/dL (1.60-2.60)
[2019-03-16 15:57] LABS: LYMPHOCYTE 4 % (20-51); MONOCYTE 10 % (3-10); NEUTROPHILS 83 % (42-75)
[2019-03-16 15:58] LABS: POLYCHROMASIA 2+
== END ==
LOC: LAB 15:09
PROVIDERS: Internal Medicine
DX: C24.1 Malignant neoplasm of ampulla of Vater (principal)

== ENCOUNTER → 2019-03-24 | Outpatient (CLI) | payer MEDICARE, OTHER ==
[2019-02-17 14:09] VITALS: BP 111/67
[2019-03-24 15:27] LABS: HEMATOCRIT 25.1 % (42.0-52.0); MEAN CELL VOLUME 95 fl (78-100); MEAN CORPUSCULAR HEMOGLOBIN 29 pg (27-31); MEAN CORPUSCULAR HGB CONC 30 g/dL (33-37); MEAN PLATELET VOLUME 9.9 fl (7.4-10.4); PLATELET COUNT 147 K/mm3 (130-400); RED BLOOD COUNT 2.64 M/mm3 (4.20-5.60); RED CELL DISTRIBUTION WIDTH 22.1 % (11.5-14.5); WHITE BLOOD COUNT 3.1 K/mm3 (4.8-10.8)
[2019-03-24 15:36] LABS: HEMOGLOBIN 7.6 g/dL (13.5-18.0)
[2019-03-24 15:47] LABS: LYMPHOCYTE 1 % (20-51); MONOCYTE 1 % (3-10); NEUTROPHILS 98 % (42-75)
[2019-03-24 15:48] LABS: HYPOCHROMIA 1+
== END ==
LOC: LAB 15:09
PROVIDERS: Internal Medicine
DX: C24.1 Malignant neoplasm of ampulla of Vater (principal)

== ENCOUNTER → 2019-03-30 | Outpatient (CLI) | payer MEDICARE, OTHER ==
[2019-02-17 14:09] VITALS: BP 111/67
[2019-03-30 07:47] LABS: HEMATOCRIT 28.4 % (42.0-52.0); HEMOGLOBIN 8.5 g/dL (13.5-18.0); MEAN CELL VOLUME 93 fl (78-100); MEAN CORPUSCULAR HEMOGLOBIN 28 pg (27-31); MEAN CORPUSCULAR HGB CONC 30 g/dL (33-37); MEAN PLATELET VOLUME 10.7 fl (7.4-10.4); PLATELET COUNT 101 K/mm3 (130-400); RED BLOOD COUNT 3.05 M/mm3 (4.20-5.60); RED CELL DISTRIBUTION WIDTH 22.7 % (11.5-14.5)
[2019-03-30 07:52] LABS: ALBUMIN 3.1 g/dL (3.4-4.8)
[2019-03-30 07:53] LABS: POTASSIUM 4.5 mmol/L (3.5-5.1)
[2019-03-30 07:54] LABS: CALCIUM 8.6 mg/dL (8.3-10.5)
[2019-03-30 07:57] LABS: TOTAL BILIRUBIN 1.3 mg/dL (0.2-1.2)
[2019-03-30 08:02] LABS: MAGNESIUM 1.9 mg/dL (1.60-2.60)
[2019-03-30 08:14] LABS: WHITE BLOOD COUNT 1.9 K/mm3 (4.8-10.8)
[2019-03-30 08:15] LABS: BAND 1 % (0-10); LYMPHOCYTE 14 % (20-51); METAMYELOCYTE 4 % (0-0); MONOCYTE 17 % (3-10); NEUTROPHILS 64 % (42-75); OVALOCYTES 1+; POLYCHROMASIA 1+
== END ==
LOC: LAB 07:23
PROVIDERS: Internal Medicine
DX: C24.1 Malignant neoplasm of ampulla of Vater (principal)

== ENCOUNTER → 2019-04-06 | Outpatient (CLI) | payer MEDICARE, OTHER ==
[2019-02-17 14:09] VITALS: BP 111/67
[2019-04-06 12:21] LABS: HEMATOCRIT 27.9 % (42.0-52.0); HEMOGLOBIN 8.1 g/dL (13.5-18.0); MEAN CELL VOLUME 97 fl (78-100); MEAN CORPUSCULAR HEMOGLOBIN 28 pg (27-31); MEAN CORPUSCULAR HGB CONC 29 g/dL (33-37); MEAN PLATELET VOLUME 10.1 fl (7.4-10.4); PLATELET COUNT 140 K/mm3 (130-400); RED BLOOD COUNT 2.88 M/mm3 (4.20-5.60); RED CELL DISTRIBUTION WIDTH 21.9 % (11.5-14.5); WHITE BLOOD COUNT 4.1 K/mm3 (4.8-10.8)
[2019-04-06 12:47] LABS: LYMPHOCYTE 2 % (20-51); MONOCYTE 4 % (3-10); NEUTROPHILS 94 % (42-75)
[2019-04-06 12:48] LABS: HYPOCHROMIA 1+; POLYCHROMASIA 1+
== END ==
LOC: LAB 11:56
PROVIDERS: Internal Medicine
DX: C24.1 Malignant neoplasm of ampulla of Vater (principal)

== ENCOUNTER → 2019-04-13 | Outpatient (CLI) | payer MEDICARE, OTHER ==
[2019-02-17 14:09] VITALS: BP 111/67
[2019-04-13 14:51] LABS: HEMATOCRIT 28.6 % (42.0-52.0); HEMOGLOBIN 8.7 g/dL (13.5-18.0); MEAN CELL VOLUME 92 fl (78-100); MEAN CORPUSCULAR HEMOGLOBIN 28 pg (27-31); MEAN CORPUSCULAR HGB CONC 30 g/dL (33-37); MEAN PLATELET VOLUME 10.1 fl (7.4-10.4); PLATELET COUNT 91 K/mm3 (130-400); RED BLOOD COUNT 3.11 M/mm3 (4.20-5.60); RED CELL DISTRIBUTION WIDTH 21.3 % (11.5-14.5)
[2019-04-13 16:40] LABS: LYMPHOCYTE 19 % (20-51); MONOCYTE 14 % (3-10); NEUTROPHILS 65 % (42-75)
[2019-04-13 16:41] LABS: HYPOCHROMIA 1+; METAMYELOCYTE 1 % (0-0); MYELOCYTE 1 % (0-0); POLYCHROMASIA 1+
== END ==
LOC: RAD 14:12
PROVIDERS: Internal Medicine
DX: C24.1 Malignant neoplasm of ampulla of Vater (principal); R18.0 Malignant ascites
CPT/HCPCS: 19804; C1729

== ENCOUNTER → 2019-04-21 | Outpatient (CLI) | payer MEDICARE, OTHER ==
[2019-02-17 14:09] VITALS: BP 111/67
[2019-04-21 08:10] LABS: HEMATOCRIT 32.6 % (42.0-52.0); HEMOGLOBIN 9.7 g/dL (13.5-18.0); MEAN CELL VOLUME 95 fl (78-100); MEAN CORPUSCULAR HEMOGLOBIN 28 pg (27-31); MEAN CORPUSCULAR HGB CONC 30 g/dL (33-37); MEAN PLATELET VOLUME 9.9 fl (7.4-10.4); PLATELET COUNT 219 K/mm3 (130-400); RED BLOOD COUNT 3.43 M/mm3 (4.20-5.60); WHITE BLOOD COUNT 2.7 K/mm3 (4.8-10.8)
[2019-04-21 08:13] LABS: ALBUMIN 3.1 g/dL (3.4-4.8); POTASSIUM 4.1 mmol/L (3.5-5.1)
[2019-04-21 08:14] LABS: CALCIUM 8.8 mg/dL (8.3-10.5)
[2019-04-21 08:17] LABS: TOTAL BILIRUBIN 1.1 mg/dL (0.2-1.2)
[2019-04-21 08:22] LABS: MAGNESIUM 2.03 mg/dL (1.60-2.60)
[2019-04-21 08:39] LABS: BAND 2 % (0-10); LYMPHOCYTE 11 % (20-51); MONOCYTE 20 % (3-10); NEUTROPHILS 65 % (42-75)
[2019-04-21 08:40] LABS: HYPOCHROMIA 1+; POLYCHROMASIA 1+
== END ==
LOC: LAB 07:51
PROVIDERS: Internal Medicine
DX: C24.1 Malignant neoplasm of ampulla of Vater (principal)

== ENCOUNTER → 2019-04-27 | Outpatient (CLI) | payer MEDICARE, OTHER ==
[2019-02-17 14:09] VITALS: BP 111/67
[2019-04-27 11:58] LABS: URINE APPEARANCE CLOUDY; URINE BILIRUBIN NEGATIVE (NEGATIVE); URINE BLOOD 250 ery/uL (NEGATIVE); URINE COLOR BROWN; URINE GLUCOSE NEGATIVE (NEGATIVE); URINE KETONE NEGATIVE (NEGATIVE); URINE LEUKOCYTE ESTERASE NEGATIVE (NEGATIVE); URINE MUCUS PRESENT (NOT PRESENT); URINE NITRATE NEGATIVE (NEGATIVE); URINE PROTEIN(semi-quant) 1+ mg/dL (NEGATIVE); URINE UROBILINOGEN NORMAL (NORMAL)
== END ==
LOC: LAB 10:58
PROVIDERS: Family Medicine
DX: C22.0 Liver cell carcinoma (principal); R31.9 Hematuria, unspecified

== ENCOUNTER → 2019-05-08 | Outpatient (CLI) | payer MEDICARE, OTHER ==
[2019-02-17 14:09] VITALS: BP 111/67
[2019-05-08 14:50] LABS: ALBUMIN 2.9 g/dL (3.4-4.8); POTASSIUM 3.8 mmol/L (3.5-5.1)
[2019-05-08 14:51] LABS: CALCIUM 8.1 mg/dL (8.3-10.5)
[2019-05-08 14:53] LABS: TOTAL PROTEIN 6.5 g/dL (6.2-8.1)
[2019-05-08 14:55] LABS: TOTAL BILIRUBIN 1.2 mg/dL (0.2-1.2)
[2019-05-08 14:59] LABS: MAGNESIUM 1.94 mg/dL (1.60-2.60)
[2019-05-08 15:05] LABS: HEMATOCRIT 33.2 % (42.0-52.0); MEAN CELL VOLUME 92 fl (78-100); MEAN CORPUSCULAR HEMOGLOBIN 28 pg (27-31); MEAN CORPUSCULAR HGB CONC 30 g/dL (33-37); MEAN PLATELET VOLUME 10.7 fl (7.4-10.4); PLATELET COUNT 174 K/mm3 (130-400); RED BLOOD COUNT 3.63 M/mm3 (4.20-5.60); RED CELL DISTRIBUTION WIDTH 17.2 % (11.5-14.5); WHITE BLOOD COUNT 4.6 K/mm3 (4.8-10.8)
[2019-05-08 16:25] LABS: LYMPHOCYTE 11 % (20-51); MONOCYTE 10 % (3-10); NEUTROPHILS 76 % (42-75)
[2019-05-08 16:26] LABS: HYPOCHROMIA 1+
== END ==
LOC: LAB 14:31
PROVIDERS: Internal Medicine
DX: C24.1 Malignant neoplasm of ampulla of Vater (principal)

== ENCOUNTER → 2019-05-15 | Outpatient (CLI) | payer MEDICARE, OTHER ==
[2019-02-17 14:09] VITALS: BP 111/67
[2019-05-15 13:33] LABS: HEMATOCRIT 36.2 % (42.0-52.0); HEMOGLOBIN 10.8 g/dL (13.5-18.0); MEAN CELL VOLUME 90 fl (78-100); MEAN CORPUSCULAR HEMOGLOBIN 27 pg (27-31); MEAN CORPUSCULAR HGB CONC 30 g/dL (33-37); MEAN PLATELET VOLUME 9.7 fl (7.4-10.4); PLATELET COUNT 181 K/mm3 (130-400); RED BLOOD COUNT 4.02 M/mm3 (4.20-5.60); RED CELL DISTRIBUTION WIDTH 17.1 % (11.5-14.5)
[2019-05-15 13:38] LABS: ALBUMIN 2.9 g/dL (3.4-4.8)
[2019-05-15 13:39] LABS: POTASSIUM 3.9 mmol/L (3.5-5.1)
[2019-05-15 13:40] LABS: CALCIUM 8.3 mg/dL (8.3-10.5)
[2019-05-15 13:41] LABS: TOTAL PROTEIN 6.9 g/dL (6.2-8.1)
[2019-05-15 13:43] LABS: TOTAL BILIRUBIN 0.9 mg/dL (0.2-1.2)
[2019-05-15 13:50] LABS: LYMPHOCYTE 13 % (20-51); MONOCYTE 11 % (3-10); NEUTROPHILS 66 % (42-75); OVALOCYTES 1+; TEAR DROP CELLS 1+
== END ==
LOC: LAB 13:11
PROVIDERS: Internal Medicine
DX: C24.1 Malignant neoplasm of ampulla of Vater (principal)

== ENCOUNTER → 2019-06-15 | Outpatient (CLI) | payer MEDICARE, OTHER ==
[2019-02-17 14:09] VITALS: BP 111/67
[2019-06-15 15:33] LABS: HEMATOCRIT 29.8 % (42.0-52.0); HEMOGLOBIN 8.9 g/dL (13.5-18.0); MEAN CELL VOLUME 88 fl (78-100); MEAN CORPUSCULAR HEMOGLOBIN 26 pg (27-31); MEAN CORPUSCULAR HGB CONC 30 g/dL (33-37); MEAN PLATELET VOLUME 10.5 fl (7.4-10.4); PLATELET COUNT 101 K/mm3 (130-400); RED BLOOD COUNT 3.38 M/mm3 (4.20-5.60); RED CELL DISTRIBUTION WIDTH 18.8 % (11.5-14.5)
[2019-06-15 15:50] LABS: ALBUMIN 2.9 g/dL (3.4-4.8)
[2019-06-15 15:51] LABS: POTASSIUM 4.3 mmol/L (3.5-5.1)
[2019-06-15 15:52] LABS: CALCIUM 8.6 mg/dL (8.3-10.5)
[2019-06-15 15:53] LABS: TOTAL PROTEIN 6.4 g/dL (6.2-8.1)
[2019-06-15 15:55] LABS: TOTAL BILIRUBIN 1.3 mg/dL (0.2-1.2)
[2019-06-15 15:59] LABS: MAGNESIUM 1.9 mg/dL (1.60-2.60)
[2019-06-15 16:25] LABS: LYMPHOCYTE 38 % (20-51); NEUTROPHILS 51 % (42-75); WHITE BLOOD COUNT 1.5 K/mm3 (4.8-10.8)
[2019-06-15 16:26] LABS: METAMYELOCYTE 1 % (0-0); MONOCYTE 6 % (3-10); POLYCHROMASIA 1+
== END ==
LOC: LAB 15:14
PROVIDERS: Internal Medicine
DX: C24.1 Malignant neoplasm of ampulla of Vater (principal)

== ENCOUNTER → 2019-06-19 | Outpatient (CLI) | payer MEDICARE, OTHER ==
[2019-02-17 14:09] VITALS: BP 111/67
[2019-06-19 09:34] LABS: HEMATOCRIT 31.9 % (42.0-52.0); HEMOGLOBIN 9.4 g/dL (13.5-18.0); MEAN CELL VOLUME 90 fl (78-100); MEAN CORPUSCULAR HEMOGLOBIN 26 pg (27-31); MEAN CORPUSCULAR HGB CONC 30 g/dL (33-37); MEAN PLATELET VOLUME 10.7 fl (7.4-10.4); PLATELET COUNT 189 K/mm3 (130-400); RED BLOOD COUNT 3.56 M/mm3 (4.20-5.60); RED CELL DISTRIBUTION WIDTH 20.4 % (11.5-14.5)
[2019-06-19 10:21] LABS: WHITE BLOOD COUNT 1.6 K/mm3 (4.8-10.8)
[2019-06-19 10:22] LABS: BAND 1 % (0-10); LYMPHOCYTE 22 % (20-51); MICROCYTOSIS 1+; MONOCYTE 20 % (3-10); NEUTROPHILS 50 % (42-75); TEAR DROP CELLS 1+
[2019-06-19 10:23] LABS: OVALOCYTES 1+
== END ==
LOC: LAB 09:03
PROVIDERS: Internal Medicine
DX: C24.1 Malignant neoplasm of ampulla of Vater (principal)

== ENCOUNTER → 2019-06-26 | Outpatient (CLI) | payer MEDICARE, OTHER ==
[2019-02-17 14:09] VITALS: BP 111/67
[2019-06-26 08:32] LABS: HEMATOCRIT 30.2 % (42.0-52.0); MEAN CELL VOLUME 91 fl (78-100); MEAN CORPUSCULAR HEMOGLOBIN 27 pg (27-31); MEAN CORPUSCULAR HGB CONC 30 g/dL (33-37); MEAN PLATELET VOLUME 9.3 fl (7.4-10.4); PLATELET COUNT 188 K/mm3 (130-400); RED BLOOD COUNT 3.31 M/mm3 (4.20-5.60); RED CELL DISTRIBUTION WIDTH 21.7 % (11.5-14.5); WHITE BLOOD COUNT 3.7 K/mm3 (4.8-10.8)
[2019-06-26 08:45] LABS: ALBUMIN 3.1 g/dL (3.4-4.8); NEUTROPHILS 77 % (42-75)
[2019-06-26 08:46] LABS: CALCIUM 8.5 mg/dL (8.3-10.5); LYMPHOCYTE 8 % (20-51); METAMYELOCYTE 1 % (0-0); MONOCYTE 11 % (3-10); OVALOCYTES 2+; TEAR DROP CELLS 1+
[2019-06-26 08:48] LABS: TOTAL PROTEIN 6.4 g/dL (6.2-8.1)
[2019-06-26 08:49] LABS: TOTAL BILIRUBIN 1.3 mg/dL (0.2-1.2)
== END ==
LOC: LAB 08:22
PROVIDERS: Internal Medicine
DX: C24.1 Malignant neoplasm of ampulla of Vater (principal)

== ENCOUNTER → 2019-06-29 | Outpatient (CLI) | payer MEDICARE, OTHER ==
[2019-02-17 14:09] VITALS: BP 111/67
[2019-06-29 11:02] LABS: HEMATOCRIT 32.3 % (42.0-52.0); HEMOGLOBIN 9.5 g/dL (13.5-18.0); MEAN CELL VOLUME 92 fl (78-100); MEAN CORPUSCULAR HEMOGLOBIN 27 pg (27-31); MEAN PLATELET VOLUME 11.1 fl (7.4-10.4); PLATELET COUNT 216 K/mm3 (130-400); RED BLOOD COUNT 3.51 M/mm3 (4.20-5.60); RED CELL DISTRIBUTION WIDTH 21.6 % (11.5-14.5); WHITE BLOOD COUNT 4.2 K/mm3 (4.8-10.8)
[2019-06-29 11:13] LABS: ALBUMIN 3.3 g/dL (3.4-4.8); POTASSIUM 4.9 mmol/L (3.5-5.1)
[2019-06-29 11:14] LABS: CALCIUM 8.2 mg/dL (8.3-10.5)
[2019-06-29 11:16] LABS: TOTAL PROTEIN 7.2 g/dL (6.2-8.1)
[2019-06-29 11:17] LABS: TOTAL BILIRUBIN 1.4 mg/dL (0.2-1.2)
[2019-06-29 11:22] LABS: MAGNESIUM 2.14 mg/dL (1.60-2.60)
[2019-06-29 11:26] LABS: LYMPHOCYTE 1 % (20-51); MEAN CORPUSCULAR HGB CONC 29 g/dL (33-37); MONOCYTE 1 % (3-10); NEUTROPHILS 98 % (42-75); OVALOCYTES 2+
== END ==
LOC: LAB 10:36
PROVIDERS: Internal Medicine
DX: C24.1 Malignant neoplasm of ampulla of Vater (principal); R97.0 Elevated carcinoembryonic antigen [CEA]

== ENCOUNTER → 2019-07-07 | Outpatient (CLI) | payer MEDICARE, OTHER ==
[2019-02-17 14:09] VITALS: BP 111/67
[2019-07-07 16:20] LABS: ALBUMIN 2.8 g/dL (3.4-4.8); HEMOGLOBIN 8.9 g/dL (13.5-18.0); MEAN CELL VOLUME 88 fl (78-100); MEAN CORPUSCULAR HEMOGLOBIN 27 pg (27-31); MEAN CORPUSCULAR HGB CONC 31 g/dL (33-37); MEAN PLATELET VOLUME 11.4 fl (7.4-10.4); PLATELET COUNT 182 K/mm3 (130-400); POTASSIUM 3.9 mmol/L (3.5-5.1); RED BLOOD COUNT 3.28 M/mm3 (4.20-5.60); RED CELL DISTRIBUTION WIDTH 21.4 % (11.5-14.5); WHITE BLOOD COUNT 3.2 K/mm3 (4.8-10.8)
[2019-07-07 16:21] LABS: CALCIUM 7.7 mg/dL (8.3-10.5)
[2019-07-07 16:22] LABS: TOTAL PROTEIN 6.1 g/dL (6.2-8.1)
[2019-07-07 16:24] LABS: TOTAL BILIRUBIN 1.9 mg/dL (0.2-1.2)
[2019-07-07 16:28] LABS: MAGNESIUM 1.9 mg/dL (1.60-2.60)
[2019-07-07 16:48] LABS: LYMPHOCYTE 14 % (20-51); NEUTROPHILS 69 % (42-75)
[2019-07-07 16:49] LABS: HYPOCHROMIA 1+; MONOCYTE 16 % (3-10)
== END ==
LOC: LAB 15:56
PROVIDERS: Internal Medicine
DX: C24.1 Malignant neoplasm of ampulla of Vater (principal)

== ENCOUNTER → 2019-07-13 | Outpatient (CLI) | payer MEDICARE, OTHER ==
[2019-02-17 14:09] VITALS: BP 111/67
[2019-07-13 13:45] LABS: HEMATOCRIT 27.4 % (42.0-52.0); HEMOGLOBIN 8.1 g/dL (13.5-18.0); MEAN CELL VOLUME 93 fl (78-100); MEAN CORPUSCULAR HEMOGLOBIN 28 pg (27-31); MEAN CORPUSCULAR HGB CONC 30 g/dL (33-37); MEAN PLATELET VOLUME 10.2 fl (7.4-10.4); PLATELET COUNT 214 K/mm3 (130-400); RED BLOOD COUNT 2.95 M/mm3 (4.20-5.60); RED CELL DISTRIBUTION WIDTH 22.5 % (11.5-14.5); WHITE BLOOD COUNT 3.5 K/mm3 (4.8-10.8)
[2019-07-13 14:05] LABS: ALBUMIN 2.9 g/dL (3.4-4.8); POTASSIUM 4.5 mmol/L (3.5-5.1)
[2019-07-13 14:06] LABS: CALCIUM 7.5 mg/dL (8.3-10.5)
[2019-07-13 14:08] LABS: TOTAL PROTEIN 5.8 g/dL (6.2-8.1)
[2019-07-13 14:09] LABS: TOTAL BILIRUBIN 1.3 mg/dL (0.2-1.2)
[2019-07-13 14:14] LABS: HYPOCHROMIA 1+; LYMPHOCYTE 5 % (20-51); MAGNESIUM 2.06 mg/dL (1.60-2.60); MICROCYTOSIS 1+; MONOCYTE 4 % (3-10); NEUTROPHILS 91 % (42-75)
== END ==
LOC: LAB 13:24
PROVIDERS: Internal Medicine
DX: C24.1 Malignant neoplasm of ampulla of Vater (principal)

== ENCOUNTER → 2019-07-19 | Outpatient (CLI) | payer MEDICARE, OTHER ==
[2019-02-17 14:09] VITALS: BP 111/67
[2019-07-19 15:45] LABS: HEMATOCRIT 27.6 % (42.0-52.0); HEMOGLOBIN 8.4 g/dL (13.5-18.0); MEAN CELL VOLUME 89 fl (78-100); MEAN CORPUSCULAR HEMOGLOBIN 27 pg (27-31); MEAN CORPUSCULAR HGB CONC 30 g/dL (33-37); MEAN PLATELET VOLUME 10.4 fl (7.4-10.4); PLATELET COUNT 107 K/mm3 (130-400); RED BLOOD COUNT 3.09 M/mm3 (4.20-5.60)
[2019-07-19 16:04] LABS: ALBUMIN 2.7 g/dL (3.4-4.8)
[2019-07-19 16:06] LABS: CALCIUM 7.9 mg/dL (8.3-10.5)
[2019-07-19 16:07] LABS: TOTAL PROTEIN 5.6 g/dL (6.2-8.1)
[2019-07-19 16:13] LABS: MAGNESIUM 1.77 mg/dL (1.60-2.60)
[2019-07-19 16:51] LABS: WHITE BLOOD COUNT 1.5 K/mm3 (4.8-10.8)
[2019-07-19 17:23] LABS: LYMPHOCYTE 14 % (20-51); MONOCYTE 11 % (3-10); NEUTROPHILS 75 % (42-75); NUCLEATED RED BLOOD CELL 3 (0-6)
[2019-07-19 17:24] LABS: HYPOCHROMIA 1+
== END ==
LOC: LAB 15:15
PROVIDERS: Family Medicine
DX: C22.0 Liver cell carcinoma (principal); R60.0 Localized edema

== ENCOUNTER → 2019-07-20 | Outpatient (CLI) | payer MEDICARE, OTHER ==
[2019-02-17 14:09] VITALS: BP 111/67
[2019-07-20 09:51] LABS: URINE APPEARANCE CLOUDY; URINE BILIRUBIN NEGATIVE (NEGATIVE); URINE BLOOD 250 ery/uL (NEGATIVE); URINE COLOR YELLOW; URINE GLUCOSE NEGATIVE (NEGATIVE); URINE KETONE NEGATIVE (NEGATIVE); URINE LEUKOCYTE ESTERASE NEGATIVE (NEGATIVE); URINE NITRATE NEGATIVE (NEGATIVE); URINE PROTEIN(semi-quant) TRACE mg/dL (NEGATIVE); URINE UROBILINOGEN NORMAL (NORMAL)
== END ==
LOC: LAB 08:26
PROVIDERS: Family Medicine
DX: C22.0 Liver cell carcinoma (principal); R60.0 Localized edema

== ENCOUNTER → 2019-07-24 | Outpatient (CLI) | payer MEDICARE, OTHER ==
[2019-02-17 14:09] VITALS: BP 111/67
[2019-07-24 09:37] LABS: ALBUMIN 2.7 g/dL (3.4-4.8); POTASSIUM 4.3 mmol/L (3.5-5.1)
[2019-07-24 09:40] LABS: TOTAL PROTEIN 5.6 g/dL (6.2-8.1)
[2019-07-24 09:42] LABS: TOTAL BILIRUBIN 2.2 mg/dL (0.2-1.2)
[2019-07-24 09:43] LABS: HEMATOCRIT 31.7 % (42.0-52.0); HEMOGLOBIN 9.5 g/dL (13.5-18.0); MEAN CELL VOLUME 92 fl (78-100); MEAN CORPUSCULAR HEMOGLOBIN 28 pg (27-31); MEAN CORPUSCULAR HGB CONC 30 g/dL (33-37); MEAN PLATELET VOLUME 11.3 fl (7.4-10.4); PLATELET COUNT 244 K/mm3 (130-400); RED BLOOD COUNT 3.45 M/mm3 (4.20-5.60); RED CELL DISTRIBUTION WIDTH 23.2 % (11.5-14.5); WHITE BLOOD COUNT 4.3 K/mm3 (4.8-10.8)
[2019-07-24 09:47] LABS: MAGNESIUM 1.85 mg/dL (1.60-2.60)
[2019-07-24 10:18] LABS: NEUTROPHILS 68 % (42-75)
[2019-07-24 10:19] LABS: LYMPHOCYTE 11 % (20-51); MONOCYTE 20 % (3-10)
== END ==
LOC: LAB 09:13
PROVIDERS: Internal Medicine
DX: C24.1 Malignant neoplasm of ampulla of Vater (principal)

== ENCOUNTER → 2019-07-31 | Outpatient (CLI) | payer MEDICARE, OTHER ==
[2019-02-17 14:09] VITALS: BP 111/67
[2019-07-31 11:40] LABS: HEMATOCRIT 28.4 % (42.0-52.0); HEMOGLOBIN 8.5 g/dL (13.5-18.0); MEAN CELL VOLUME 93 fl (78-100); MEAN CORPUSCULAR HEMOGLOBIN 28 pg (27-31); MEAN CORPUSCULAR HGB CONC 30 g/dL (33-37); MEAN PLATELET VOLUME 11.2 fl (7.4-10.4); PLATELET COUNT 125 K/mm3 (130-400); RED BLOOD COUNT 3.04 M/mm3 (4.20-5.60); RED CELL DISTRIBUTION WIDTH 22.2 % (11.5-14.5)
[2019-07-31 11:45] LABS: ALBUMIN 2.7 g/dL (3.4-4.8)
[2019-07-31 11:46] LABS: POTASSIUM 3.7 mmol/L (3.5-5.1)
[2019-07-31 11:47] LABS: CALCIUM 8.1 mg/dL (8.3-10.5)
[2019-07-31 11:48] LABS: TOTAL PROTEIN 5.2 g/dL (6.2-8.1)
[2019-07-31 11:49] LABS: WHITE BLOOD COUNT 0.4 K/mm3 (4.8-10.8)
[2019-07-31 11:50] LABS: TOTAL BILIRUBIN 2.1 mg/dL (0.2-1.2)
[2019-07-31 11:54] LABS: MAGNESIUM 1.99 mg/dL (1.60-2.60)
[2019-07-31 11:58] LABS: BAND 1 % (0-10); LYMPHOCYTE 40 % (20-51); MONOCYTE 6 % (3-10); NEUTROPHILS 49 % (42-75)
== END ==
LOC: LAB 11:25
PROVIDERS: Internal Medicine
DX: C24.1 Malignant neoplasm of ampulla of Vater (principal)

== ENCOUNTER → 2019-08-02 | Outpatient (CLI) | payer MEDICARE, OTHER ==
[2019-02-17 14:09] VITALS: BP 111/67
[2019-08-02 11:36] LABS: HEMATOCRIT 27.7 % (42.0-52.0); HEMOGLOBIN 8.3 g/dL (13.5-18.0); MEAN CELL VOLUME 91 fl (78-100); MEAN CORPUSCULAR HEMOGLOBIN 27 pg (27-31); MEAN CORPUSCULAR HGB CONC 30 g/dL (33-37); MEAN PLATELET VOLUME 11.9 fl (7.4-10.4); PLATELET COUNT 90 K/mm3 (130-400); RED BLOOD COUNT 3.03 M/mm3 (4.20-5.60); RED CELL DISTRIBUTION WIDTH 22.2 % (11.5-14.5)
[2019-08-02 11:53] LABS: LYMPHOCYTE 7 % (20-51); MONOCYTE 16 % (3-10); NEUTROPHILS 77 % (42-75)
== END ==
LOC: LAB 11:23
PROVIDERS: Internal Medicine
DX: C24.1 Malignant neoplasm of ampulla of Vater (principal)

== ENCOUNTER → 2019-08-04 | Outpatient (CLI) | payer MEDICARE, OTHER ==
[2019-02-17 14:09] VITALS: BP 111/67
[2019-08-04 12:22] LABS: PROTHROMBIN TIME 11.8 SECONDS (9.0-12.0)
== END ==
LOC: LAB 12:01
PROVIDERS: Physician Assistant
DX: C24.1 Malignant neoplasm of ampulla of Vater (principal); C78.7 Secondary malignant neoplasm of liver and intrahepatic bile duct; I85.00 Esophageal varices without bleeding

== ENCOUNTER → 2019-08-10 | Outpatient (CLI) | payer MEDICARE, OTHER ==
[2019-02-17 14:09] VITALS: BP 111/67
[2019-08-10 13:35] LABS: HEMATOCRIT 29.7 % (42.0-52.0); HEMOGLOBIN 8.8 g/dL (13.5-18.0); MEAN CELL VOLUME 95 fl (78-100); MEAN CORPUSCULAR HEMOGLOBIN 28 pg (27-31); MEAN CORPUSCULAR HGB CONC 30 g/dL (33-37); MEAN PLATELET VOLUME 10.5 fl (7.4-10.4); PLATELET COUNT 207 K/mm3 (130-400); RED BLOOD COUNT 3.12 M/mm3 (4.20-5.60); RED CELL DISTRIBUTION WIDTH 23.2 % (11.5-14.5); WHITE BLOOD COUNT 10.1 K/mm3 (4.8-10.8)
[2019-08-10 13:45] LABS: ALBUMIN 2.5 g/dL (3.4-4.8); POTASSIUM 4.5 mmol/L (3.5-5.1)
[2019-08-10 13:46] LABS: CALCIUM 8.4 mg/dL (8.3-10.5)
[2019-08-10 13:47] LABS: TOTAL PROTEIN 5.2 g/dL (6.2-8.1)
[2019-08-10 13:49] LABS: LYMPHOCYTE 6 % (20-51); MONOCYTE 5 % (3-10); NEUTROPHILS 86 % (42-75); TOTAL BILIRUBIN 2.5 mg/dL (0.2-1.2)
== END ==
LOC: LAB 13:24
PROVIDERS: Physician Assistant
DX: C24.1 Malignant neoplasm of ampulla of Vater (principal); C78.7 Secondary malignant neoplasm of liver and intrahepatic bile duct; I85.00 Esophageal varices without bleeding; R18.8 Other ascites